=== PATIENT | female | born 1975 ===

== ENCOUNTER 2018-12-16 17:30 | Emergency (ER) | payer MEDICAID ==
[2018-12-16 17:58] VITALS: BP 112/77; PULSE 58; RESP 16; TEMP 98.7; O2SAT 100
--- NOTE | 2018-12-16 18:24 | C.PDOC ---
History Of Present Illness 43 year old female presents to the ED for evaluation of an itchy rash to her bilateral legs which developed over the past 3 days. Patient states she shaved her legs 3 days ago after a long time. She then applied a cream to the area and noticed a rash develop. Patient states the rash does not extend beyond her legs. She denies shortness of breath, wheezing, or mucosa involvement. Chief Complaint (Nursing): Abnormal Skin Integrity History Per: Patient History/Exam Limitations: no limitations Onset/Duration Of Symptoms: Days (3) Current Symptoms Are (Timing): Still Present Quality Of Symptoms: Itching Additional History Per: Patient Past Medical History Reviewed: Historical Data, Nursing Documentation, Vital Signs Vital Signs: Last Vital Signs Temp 98.7 F 12/16/18 17:57 Pulse 58 L 12/16/18 17:57 Resp 16 12/16/18 17:57 BP 112/77 12/16/18 17:57 Pulse Ox 100 12/16/18 17:57 - Medical History PMH: No Chronic Diseases Surgical History: No Surg Hx Family History: States: Unknown Family Hx - Social History Hx Tobacco Use: No Hx Alcohol Use: No Hx Substance Use: No - Immunization History Hx Tetanus Toxoid Vaccination: No Hx Influenza Vaccination: No Hx Pneumococcal Vaccination: No Review Of Systems Constitutional: Negative for: Fever, Chills, Weakness ENT: Negative for: Mouth Swelling, Throat Pain, Throat Swelling Cardiovascular: Negative for: Chest Pain Respiratory: Negative for: Cough, Shortness of Breath, Wheezing Gastrointestinal: Negative for: Nausea, Vomiting, Diarrhea Skin: Positive for: Rash (itchy, to bilateral legs ) Neurological: Negative for: Weakness, Numbness, Dizziness Physical Exam - Physical Exam Appears: Well, Non-toxic, No Acute Distress Skin: Warm, Rash (diffuse, papular rash to bilateral lower extremities. does not extend beyond distal thigh. no hives ) Head: Atraumatic, Normacephalic Eye(s): bilateral: Normal Inspection Ear(s): Bilateral: Normal (no drainage ) Nose: Normal Oral Mucosa: Moist Throat: Normal (no swelling or injection ), No Exudate, Other (airway patent ) Neck: Normal ROM, Supple Chest: Symmetrical Respiratory: No Accessory Muscle Use, Other (normal inspiratory effort) Extremity: Normal ROM, Capillary Refill (less than 2 seconds ) Extremity: Bilateral: Atraumatic Pulses: Left Radial: Normal, Right Radial: Normal Neurological/Psych: Oriented x3, Normal Cranial Nerves (grossly intact ) ED Course And Treatment O2 Sat by Pulse Oximetry: 100 (on RA ) Pulse Ox Interpretation: Normal Disposition Counseled Patient/Family Regarding: Diagnosis, Need For Followup, Rx Given - Disposition Referrals: Driss Schwab MD [Staff Provider] - Disposition: HOME/ ROUTINE Disposition Time: 18:23 Condition: STABLE Additional Instructions: Aplicar crema a las zonas de erupcin cutnea dos veces al da. Prescriptions: Hydrocortisone 1% Cream [Cortizone 1% Cream] 30 applic EXT BID #30 tube Instructions: Contact Dermatitis (DC) Forms: Gen Discharge Inst Greek, [facility] (Greek) Print Language: CITIZEN OF [place] - Clinical Impression Clinical Impression: Contact dermatitis - PA / PRODUCT TRAINER / Resident Statement MD/DO has reviewed & agrees with the documentation as recorded. - Scribe Statement The provider has reviewed the documentation as recorded by the Scribe (Cris Crum) All medical record entries made by the Scribe were at my direction and personally dictated by me. I have reviewed the chart and agree that the record accurately reflects my personal performance of the history, physical exam, medical decision making, and the department course for this patient. I have also personally directed, reviewed, and agree with the discharge instructions and disposition.
== END 2018-12-16 18:41 | disposition home or self-care (01) ==
LOC: C.ER 17:30
DX: L25.9 Unspecified contact dermatitis, unspecified cause (principal)